=== PATIENT | male | born 1975 | race African-American/Black ===

== ENCOUNTER 2016-03-05 13:38 | Inpatient (IN) | payer MEDICARE, MEDICAID ==
[~2016-03-05] VITALS: Ht 190.5 cm; Wt 69.0 kg
[~2016-03-05 13:38] MED LIST: PROPOFOL 50ML PER ML IV ONE
[2016-03-05] MEDS ORDERED: LIDOCAINE 1% 20ML NERVEBLOCK ONE (13:44)
[2016-03-05] MEDS ORDERED: PHARMACY TO DOSE VANCOMYCIN IV SCH (16:50)
[2016-03-05] MEDS ORDERED: PHARMACY TO DOSE ZOSYN IV SCH (16:50)
[2016-03-05] MEDS ORDERED: BISACODYL 10 MG SUPP RECTAL PRN (16:50)
[2016-03-05] MEDS ORDERED: ALU/MAG/SIM 30 ML UDC PO PRN (16:50)
[2016-03-05] MEDS ORDERED: BISACODYL EC 5 MG TAB PO PRN (16:50)
[2016-03-05] MEDS ORDERED: SALINE FLUSH 10 ML FLUSH PRN (16:50)
[2016-03-05] MEDS ORDERED: ENOXAPARIN 40 MG/0.4 ML SYR SUBQ SCH (16:50)
[2016-03-05] MEDS ORDERED: MAG HYDROX 30 ML UDC PO PRN (16:50)
[2016-03-05] MEDS ORDERED: DILAUDID 1 MG/ML AMP ONE (17:15)
[2016-03-05] MEDS ORDERED: ONDANSETRON ODT 4 MG TAB ONE (17:15)
[2016-03-05] MEDS: **NOTE TO NURSE**PLEASE ENTER HT AND WT FOR ANTIBIOTIC DOSING XX SCH ×2 (18:45→20:00)
[2016-03-05 18:46] VITALS: BP_SYST 110; RESP 16; TEMP 98
[2016-03-05 18:47] VITALS: BMI 19.0
[2016-03-05] MEDS ORDERED: MISSING DOSE XX ONE (19:40)
[2016-03-05 20:24] VITALS: BP_SYST 110; RESP 16; TEMP 98.5
[2016-03-05] MEDS: SALINE FLUSH 10 ML FLUSH SCH (20:32)
[2016-03-05] MEDS: PIPERACIL/TAZO 3.375GM/50ML 50 ML IV SCH (20:32)
[2016-03-05] MEDS: ENOXAPARIN 40 MG/0.4 ML SYR SUBQ SCH (20:33)
[2016-03-05] MEDS: VANCOMYCIN 1,000 MG in SODIUM CHLORIDE 0.9% 250 ML IV SCH (20:45)
[2016-03-05] MEDS: oxyCODONE 5 MG/5 ML PO PRN (22:02)
[2016-03-05 23:39] VITALS: BP_SYST 118; RESP 16; TEMP 98.3
[2016-03-06] MEDS: PIPERACIL/TAZO 3.375GM/50ML 50 ML IV SCH ×5 (00:09→23:51)
[2016-03-06] MEDS: oxyCODONE 5 MG/5 ML PO PRN ×4 (01:57→18:00)
[2016-03-06] MEDS: ONDANSETRON ODT 4 MG TAB PO PRN ×3 (01:58→18:00)
[2016-03-06] MEDS: VANCOMYCIN 1,000 MG in SODIUM CHLORIDE 0.9% 250 ML IV SCH ×3 (04:04→20:50)
[2016-03-06 04:12] VITALS: BP_SYST 116; RESP 16; TEMP 97.6
[2016-03-06] MEDS: SODIUM CHLORIDE 0.9% FLUSH BAG 500 ML IV SCH (06:06)
[2016-03-06] MEDS ORDERED: MISSING DOSE XX ONE ×2 (07:30→15:45)
[2016-03-06 07:43] VITALS: BP_SYST 132; RESP 15; TEMP 98.4
[2016-03-06] MEDS: SALINE FLUSH 10 ML FLUSH SCH ×2 (08:00→20:07)
[2016-03-06 08:40] VITALS: Ht 190.5 cm; Wt 69.0 kg
[2016-03-06] MEDS ORDERED: AMINO ACIDS IV SCH (09:40)
[2016-03-06] MEDS ORDERED: DEXT 10% IV SCH (09:40)
[2016-03-06 11:26] VITALS: BP_SYST 114; RESP 15; TEMP 97.4
[2016-03-06] MEDS ORDERED: PHARMACY TO DOSE XX SCH (14:00)
[2016-03-06] MEDS: DILAUDID 1 MG/ML AMP IV PRN ×3 (15:54→20:51)
[2016-03-06] MEDS: FAT EMULSION 20% 250 ML IV SCH (17:24)
[2016-03-06] MEDS: CALCIUM IV SCH ×5 (17:25)
[2016-03-06] MEDS: SODIUM IV SCH ×5 (17:25)
[2016-03-06] MEDS: POTASSIUM IV SCH ×5 (17:25)
[2016-03-06] MEDS: [UNRECOGNIZED DRUG - OTHER] IV SCH ×5 (17:25)
[2016-03-06] MEDS: MAGNESIUM IV SCH ×5 (17:25)
[2016-03-06] MEDS: ACETATE IV SCH ×5 (17:25)
[2016-03-06] MEDS: ENOXAPARIN 40 MG/0.4 ML SYR SUBQ SCH (18:00)
[2016-03-06 19:48] VITALS: BP_SYST 110; RESP 18; TEMP 97.6
[2016-03-06 22:58] VITALS: BP_SYST 110; RESP 18; TEMP 97.1
[2016-03-07] MEDS: DILAUDID 1 MG/ML AMP IV PRN ×6 (00:57→20:31)
[2016-03-07 04:45] VITALS: BP_SYST 104; RESP 16; TEMP 97.6
[2016-03-07] MEDS: VANCOMYCIN 1,000 MG in SODIUM CHLORIDE 0.9% 250 ML IV SCH (04:54)
[2016-03-07] MEDS: SODIUM IV SCH ×12 (04:56→18:09)
[2016-03-07] MEDS: [UNRECOGNIZED DRUG - OTHER] IV SCH ×5 (04:56)
[2016-03-07] MEDS: ACETATE IV SCH ×12 (04:56→18:09)
[2016-03-07] MEDS: POTASSIUM IV SCH ×12 (04:56→18:09)
[2016-03-07] MEDS: MAGNESIUM IV SCH ×12 (04:56→18:09)
[2016-03-07] MEDS: CALCIUM IV SCH ×12 (04:56→18:09)
[2016-03-07] MEDS: SODIUM CHLORIDE 0.9% FLUSH BAG 500 ML IV SCH (06:25)
[2016-03-07] MEDS: PIPERACIL/TAZO 3.375GM/50ML 50 ML IV SCH (06:25)
[2016-03-07 08:23] VITALS: RESP 15; TEMP 97.4
[2016-03-07] MEDS: SALINE FLUSH 10 ML FLUSH SCH ×3 (08:35→20:32)
[2016-03-07] MEDS: FAT EMULSION 20% 250 ML IV SCH (08:36)
[2016-03-07] MEDS: VANCOMYCIN 750 MG in SODIUM CHLORIDE 0.9% 250 ML IV SCH ×2 (12:51→20:03)
[2016-03-07 13:03] VITALS: BP_SYST 124; RESP 20; TEMP 98
[2016-03-07 15:48] VITALS: BP_SYST 128; RESP 16; TEMP 98.5
[2016-03-07] MEDS: [UNRECOGNIZED DRUG - OTHER] IV SCH ×7 (18:09)
[2016-03-07] MEDS: ENOXAPARIN 40 MG/0.4 ML SYR SUBQ SCH (18:21)
[2016-03-07 19:43] VITALS: BP_SYST 110; RESP 18; TEMP 97.4
[2016-03-07] MEDS ORDERED: *PINK BRACELET XX ONE (20:40)
[2016-03-07] MEDS: ZOLPIDEM 10 MG PO SCH (21:00)
[2016-03-07 22:58] VITALS: BP_SYST 120; RESP 18; TEMP 97.3
[2016-03-08] MEDS: DILAUDID 1 MG/ML AMP IV PRN ×6 (00:35→20:51)
[2016-03-08 03:42] VITALS: BP_SYST 110; RESP 18; TEMP 97.2
[2016-03-08] MEDS: VANCOMYCIN 750 MG in SODIUM CHLORIDE 0.9% 250 ML IV SCH (05:54)
[2016-03-08] MEDS: SODIUM CHLORIDE 0.9% FLUSH BAG 500 ML IV SCH (05:54)
[2016-03-08 07:48] VITALS: BP_SYST 118; RESP 20; TEMP 97
[2016-03-08] MEDS ORDERED: DEXTROSE 50% SYRINGE 50 ML IV PRN (07:55)
[2016-03-08] MEDS ORDERED: GLUCAGON 1 MG VIAL IM PRN (07:55)
[2016-03-08] MEDS: [UNRECOGNIZED DRUG - REMARK] XX SCH ×2 (08:00→19:38)
[2016-03-08] MEDS: FAT EMULSION 20% 250 ML IV SCH (08:44)
[2016-03-08] MEDS: SODIUM IV SCH ×14 (09:19→21:53)
[2016-03-08] MEDS: ACETATE IV SCH ×14 (09:19→21:53)
[2016-03-08] MEDS: POTASSIUM IV SCH ×14 (09:19→21:53)
[2016-03-08] MEDS: MAGNESIUM IV SCH ×14 (09:19→21:53)
[2016-03-08] MEDS: CALCIUM IV SCH ×14 (09:19→21:53)
[2016-03-08] MEDS: [UNRECOGNIZED DRUG - OTHER] IV SCH ×14 (09:19→21:53)
[2016-03-08 12:36] VITALS: BP_SYST 124; RESP 16; TEMP 98.1
[2016-03-08 15:15] VITALS: BP_SYST 116; RESP 18; TEMP 97.9
[2016-03-08] MEDS: VANCOMYCIN 1,250 MG in SODIUM CHLORIDE 0.9% 250 ML IV SCH (15:27)
[2016-03-08] MEDS: ENOXAPARIN 40 MG/0.4 ML SYR SUBQ SCH (18:45)
[2016-03-08 19:49] VITALS: BP_SYST 134; RESP 16; TEMP 97.5
[2016-03-08] MEDS: SALINE FLUSH 10 ML FLUSH SCH (20:51)
[2016-03-09] VITALS (17 sets, daily range): BP systolic 110–136; RESP 16–20; TEMP 97.3–98.9
[2016-03-09] MEDS: ZOLPIDEM 10 MG PO SCH ×2 (00:55→23:36)
[2016-03-09] MEDS: DILAUDID 1 MG/ML AMP IV PRN ×10 (00:57→22:43)
[2016-03-09] MEDS: VANCOMYCIN 1,250 MG in SODIUM CHLORIDE 0.9% 250 ML IV SCH ×2 (02:06→14:34)
[2016-03-09] MEDS: SODIUM CHLORIDE 0.9% FLUSH BAG 500 ML IV SCH (05:30)
[2016-03-09] MEDS: [UNRECOGNIZED DRUG - REMARK] XX SCH ×2 (08:00→20:00)
[2016-03-09] MEDS ORDERED: GLYCOPYRROLATE 0.2 MG/ML VIAL IV ONE (08:50)
[2016-03-09] MEDS ORDERED: MIDAZOLAM 2 MG/2 ML INJ IV ONE (08:50)
[2016-03-09] MEDS ORDERED: LIDOCAINE 1% BUFFERED 1 ML SYR INTRADERM PRN (08:50)
[2016-03-09] MEDS ORDERED: LACT RINGERS 1,000 ML IV SCH (08:50)
[2016-03-09] MEDS: SALINE FLUSH 10 ML FLUSH SCH ×2 (08:52→20:00)
[2016-03-09] MEDS: FAT EMULSION 20% 250 ML IV SCH (09:42)
[2016-03-09] MEDS ORDERED: OXYCODONE 5 MG TAB PO PRN (12:15)
[2016-03-09] MEDS ORDERED: ONDANSETRON 4 MG VIAL IV PRN (12:15)
[2016-03-09] MEDS ORDERED: MEPERIDINE 25 MG/ML IV PRN (12:15)
[2016-03-09] MEDS ORDERED: MORPHINE 2 MG/ML SYR IV PRN (12:15)
[2016-03-09] MEDS ORDERED: MORPHINE 4 MG/ML SYR IV PRN (12:15)
[2016-03-09] MEDS: ENOXAPARIN 40 MG/0.4 ML SYR SUBQ SCH (17:35)
[2016-03-09] MEDS: CALCIUM IV SCH ×7 (17:40)
[2016-03-09] MEDS: SODIUM IV SCH ×7 (17:40)
[2016-03-09] MEDS: MAGNESIUM IV SCH ×7 (17:40)
[2016-03-09] MEDS: POTASSIUM IV SCH ×7 (17:40)
[2016-03-09] MEDS: ACETATE IV SCH ×7 (17:40)
[2016-03-09] MEDS: [UNRECOGNIZED DRUG - OTHER] IV SCH ×7 (17:40)
[2016-03-10] MEDS: VANCOMYCIN 1,250 MG in SODIUM CHLORIDE 0.9% 250 ML IV SCH ×2 (02:39→15:06)
[2016-03-10] MEDS: DILAUDID 1 MG/ML AMP IV PRN ×4 (02:39→15:06)
[2016-03-10 03:07] VITALS: BP_SYST 134; TEMP 97.2
[2016-03-10] MEDS: SODIUM CHLORIDE 0.9% FLUSH BAG 500 ML IV SCH (05:06)
[2016-03-10] MEDS: ACETATE IV SCH ×7 (06:52)
[2016-03-10] MEDS: [UNRECOGNIZED DRUG - OTHER] IV SCH ×7 (06:52)
[2016-03-10] MEDS: CALCIUM IV SCH ×7 (06:52)
[2016-03-10] MEDS: SODIUM IV SCH ×7 (06:52)
[2016-03-10] MEDS: MAGNESIUM IV SCH ×7 (06:52)
[2016-03-10] MEDS: POTASSIUM IV SCH ×7 (06:52)
[2016-03-10 07:42] VITALS: BP_SYST 130; RESP 16; TEMP 97.2
[2016-03-10] MEDS: [UNRECOGNIZED DRUG - REMARK] XX SCH (08:00)
[2016-03-10] MEDS: SALINE FLUSH 10 ML FLUSH SCH (08:28)
[2016-03-10] MEDS: FAT EMULSION 20% 250 ML IV SCH (08:29)
[2016-03-10 11:18] VITALS: BP_SYST 125; RESP 16; TEMP 97.8
[2016-03-10 16:31] VITALS: BP_SYST 125; RESP 20; TEMP 97.8
== END 2016-03-10 19:56 | disposition home health service (06) | DRG 315 ==
LOC: ENRESERVDT → ENRESERVTM → ER 13:38 → EMR 17:01 → ENPENDDIS 17:01 → 5THE 18:16 → 5THW 03-06 18:07
PROVIDERS: ADMIT Internal Medicine; ATTEND Internal Medicine
PROC: 02HV33Z Insertion of Infusion Device into Superior Vena Cava, Percutaneous Approach (ICD-10-PCS; 2016-03-09)
PROC: 0JPTXXZ Removal of Tunneled Vascular Access Device from Trunk Subcutaneous Tissue and Fascia, External Approach (ICD-10-PCS; principal; 2016-03-09 11:56)
CPT/HCPCS: 36415; 36569; 71010; 76937; 80048; 80053; 80202; 81001; 82947; 83605; 83690; 83735; 84100; 84478; 85025; 85610; 85730; 87040; 87077; 87088; 87186; 96372